=== PATIENT | female | born 1955 | race Two or more races ===

== ENCOUNTER 2024-08-20 06:40 | Day surgery (SDC) | payer MEDICAID, SELFPAY ==
[2024-08-20] VITALS (7 sets, daily range): BP systolic 123–163; BP diastolic 66–102; PULSE 59–89; RESP 12–23; TEMP 36.2–37.1; O2SAT 93–100; BMI 31.2
[2024-08-20] MEDS: BENZOCAINE 20% (Hurricaine) SPRAY 1 DOSE TOP (07:50)
[2024-08-20] MEDS: MIDAZOLAM INJ 1 MG/ML VIAL 2 ML (ASD USE ONLY) 2 MG IV (07:58)
[2024-08-20] MEDS: fentaNYL CIT INJ 50 mCg/ML AMP 2ML (ASD USE ONLY) IV (07:58)
--- NOTE | 2024-08-20 09:39 | SUR.PHASEII ---
0812: Pt received for recovery. Report from Gela GUAMAN. Pt sleepy. Easily aroused with eye opening. Resp even, unlabored. VS stable. No c/o pain, discomfort. 0840: Pt more awake, alert. Sitting up tolerating po fluids with no difficulty swallowing and no n/v. 0853: Pt fully awake, oriented x3. Pt assisted to restroom. Ambulation steady. Pt requested daughter interpret for her. Did not wish to use label printer phone line. Both stated understanding of discharge instructions. Pt also instructed to grain picker her prescription from [facility]. Pt discharged from [facility] in stable condition.
== END 2024-08-20 08:53 | disposition home or self-care (01) ==
PROVIDERS: PCP Nurse Practitioner Family; Referring Provider Internal Medicine Gastroenterology; Visit Provider Internal Medicine Gastroenterology
PROC: (CPT 43239; principal; 2024-08-20 08:00)
DX: K29.70 Gastritis, unspecified, without bleeding (principal); Z98.84 Bariatric surgery status; K25.9 Gastric ulcer, unspecified as acute or chronic, without hemorrhage or perforation; I10 Essential (primary) hypertension
CPT/HCPCS: 43239; A4649; J2250; J3010; A9270

== ENCOUNTER 2024-08-25 08:20 | Day surgery (SDC) | payer OTHER, MEDICAID, SELFPAY ==
[2024-08-25] VITALS (12 sets, daily range): BP systolic 108–163; BP diastolic 59–88; PULSE 55–64; RESP 10–19; TEMP 36.1; O2SAT 96–100; BMI 30.4
[2024-08-25] MEDS: MIDAZOLAM INJ 1 MG/ML VIAL 2 ML (ASD USE ONLY) 2 MG IV (10:07)
[2024-08-25] MEDS: fentaNYL CIT INJ 50 mCg/ML AMP 2ML (ASD USE ONLY) IV (10:07)
--- NOTE | 2024-08-25 10:50 | SUR.PHASEII ---
1028 patient is sleepy and arousable, breathing unlabored, s/p colonoscopy by Dr. Lin, report received from Gela GUAMAN, patient to recovery and make follow up appointment with primary doctor for cardiology consult
--- NOTE | 2024-08-25 13:36 | SUR.PHASEII ---
1127 patient is awake, alert, breathing unlabored, able to tolerate water with no nausea or vomiting, meets discharge criteria, discharge instructions have been given, Dr. Lin talked to patient and daughter Farida and answer all questions, patient discharged home in wheelchair with all belongings.
== END 2024-08-25 11:28 | disposition home or self-care (01) ==
PROVIDERS: PCP Nurse Practitioner Family; Referring Provider Internal Medicine Gastroenterology; Visit Provider Internal Medicine Gastroenterology
PROC: 0DBE8ZX Excision of Large Intestine, Via Natural or Artificial Opening Endoscopic, Diagnostic (ICD-10-PCS; CPT 45380; principal; 2024-08-25 09:15)
DX: K64.1 Second degree hemorrhoids (principal); I10 Essential (primary) hypertension
CPT/HCPCS: 45380; A4649; J2250; J3010

== ENCOUNTER → 2024-12-23 | Outpatient (CLI) | payer MEDICARE, MEDICAID, SELFPAY ==
--- NOTE | 2024-12-23 09:33 | XR_ITS ---
Exam: elbow bilateral, 6 views Technique: Elbow AP, oblique lateral each elbow 6 views Exam date and time: December 15, 2024 0935 hours INDICATIONS: Patient fell one year ago with injury to both elbows, bilateral elbow pain. FINDINGS: Minimal bilateral elbow osteoarthritis No elbow fractures or dislocations. No elbow effusions IMPRESSION: Minimal bilateral elbow osteoarthritis.
== END | disposition home or self-care (01) ==
PROVIDERS: PCP Nurse Practitioner Family; Referring Provider Nurse Practitioner Family; Visit Provider Nurse Practitioner Family
DX: M19.022 Primary osteoarthritis, left elbow (principal); M19.021 Primary osteoarthritis, right elbow; S59.902S Unspecified injury of left elbow, sequela; S69.91XS Unspecified injury of right wrist, hand and finger(s), sequela; W19.XXXS Unspecified fall, sequela
CPT/HCPCS: 73080

== ENCOUNTER → 2025-02-16 | Outpatient (CLI) | payer MEDICARE, MEDICAID, SELFPAY ==
--- NOTE | 2025-02-16 11:30 | XR_ITS ---
Examination: Screening digital mammography, bilateral Computer aided detection 3-D breast Tomosynthesis, bilateral Date and time of exam: February 16, 2025 1050 hours Compared to mammograms dating to January 06, 2015 Indication: Screening Technique: Nonmagnified MLO, CC views of the breasts to been obtained, reconstructed from 3-D Tomosynthesis images. R2 computer aided detection program utilized for evaluation of suspicious masses and/or abnormal calcifications. 3-D Tomosynthesis images obtained. Findings: Scattered areas of fibroglandular density. Benign calcifications. No interval suspicious masses Impression: BI-RADS category II: Benign Findings. Recommend 1 year follow-up mammogram.
== END | disposition home or self-care (01) ==
PROVIDERS: PCP Nurse Practitioner Family; Referring Provider Nurse Practitioner Family; Visit Provider Nurse Practitioner Family
DX: Z12.31 Encounter for screening mammogram for malignant neoplasm of breast (principal); R92.323 Mammographic fibroglandular density, bilateral breasts; R92.1 Mammographic calcification found on diagnostic imaging of breast
CPT/HCPCS: 77063; 77067

== ENCOUNTER → 2025-06-18 | Outpatient (CLI) | payer MEDICARE, MEDICAID, SELFPAY ==
--- NOTE | 2025-06-18 | XR_ITS ---
EXAMINATION: PA lateral chest 2 views TECHNIQUE: Upright PA lateral chest 2 views Date and time: June 18, 2025, 1133 hours INDICATIONS: Upper back and chest pain 2 days FINDINGS: Normal heart size No pneumonia or pulmonary edema The Qasim structures are intact IMPRESSION: No active disease
--- NOTE | 2025-06-18 | XR_ITS ---
Examination: Abdomen AP single view Technique: AP portable supine abdomen, single view Exam date and time: June 18, 2025, 11:30 a.m. INDICATIONS: Abdominal pain beginning 2 days ago. FINDINGS: Moderate stool throughout the colon Minimal air distended small bowel loop in the left abdomen Surgical clips upper right abdomen No free air IMPRESSION: Minimal small bowel ileus
== END | disposition home or self-care (01) ==
PROVIDERS: PCP Nurse Practitioner Family; Referring Provider Nurse Practitioner Family; Visit Provider Nurse Practitioner Family
DX: R10.84 Generalized abdominal pain (principal); K56.7 Ileus, unspecified
CPT/HCPCS: 71046; 74018